=== PATIENT | female | born 1965 | race Caucasian/White ===

== ENCOUNTER 2022-01-22 15:49 | Emergency (ER) | payer OTHER ==
[~2022-01-22 15:49] MED LIST: CALCIUM + VITA1 EACH PO; CLARITIN10 MG PO; FENOFIBRATE160 MG PO; HCTZ25 MG PO; IMODIUM2 MG PO; LOPRESSOR50 MG PO; ONDANSETRON ODT4 MG PO/SL; POTASSIUM CHLO20 ME2 PO; PROTONIX 40MG T40 MG PO; SINGULAIR10 MG PO; SYNTHROID25 MCG PO; ZYRTEC10 M3 PO
[2022-01-22 17:06] LABS: BASOPHIL 0.7 % (0-2); EOSINOPHIL 1.7 % (0-5); MCH 29.5 pg (25.0-31.0); MCHC 32.6 g/dL (32.0-36.0); MCV 90.6 fL (78.0-100.0); MONOCYTE 7.9 % (0-12); MPV 10.4 fL (6.0-9.5); NEUTROPHIL 68.2 % (41-80); NRBC 0; PLT 275 K/uL (150-400); RBC 5.08 M/uL (4.20-5.40); RDW 13.2 % (11.5-14.0)
[2022-01-22 17:13] LABS: INR 0.97 (0.9-1.2); PROTHROMBIN TIME 12.6 SECONDS (11.9-13.9)
[2022-01-22 17:14] LABS: PTT 23.4 SECONDS (24.9-34.6)
[2022-01-22 17:21] LABS: BUN/CREAT RATIO (CALC) 17.2 RATIO; CREATININE 1.16 mg/dL (0.51-0.95); POTASSIUM 3.7 mmol/L (3.5-5.1)
== END 2022-01-22 18:30 | disposition home or self-care (01) ==
LOC: FER 15:49
PROVIDERS: Emergency Medicine
DX: G43.809 Other migraine, not intractable, without status migrainosus (principal); I10 Essential (primary) hypertension; Z88.2 Allergy status to sulfonamides; Z88.5 Allergy status to narcotic agent; Z88.8 Allergy status to other drugs, medicaments and biological substances
CPT/HCPCS: 36415; 70450; 70551; 80048; 85025; 85610; 85730; 93005

== ENCOUNTER → 2022-03-13 | Day surgery (SDC) | payer OTHER ==
[~2022-03-13] VITALS: Ht 167.6 cm; Wt 131.5 kg
[~2022-03-13] MED LIST changes: +AMITRIPTYLINE H10 MG PO; +CYANOCOBAL1000 MCG/2 IM; +ESTRADIOL VG; +FLONASE ALLER15.8 ML; +NORVASC2.5 MG PO; +PEPCID AC20 MG PO; +RELPAX20 MG PO; +VITAMIN B-121000 MC1 PO; +VITAMIN D21250 MCG PO
[2022-03-13 07:55] LABS: HCT 44.1 % (37.0-47.0); HGB 14.8 g/dl (12.5-16.0); MCH 29.8 pg (25.0-31.0); MCHC 33.6 g/dL (32.0-36.0); MCV 88.7 fL (78.0-100.0); MPV 10.7 fL (6.0-9.5); RBC 4.97 M/uL (4.20-5.40); RDW 13.7 % (11.5-14.0); WBC 7.6 K/uL (4.0-10.5)
== END | disposition home or self-care (01) ==
LOC: FAS 07:20
PROVIDERS: Surgery
DX: K29.70 Gastritis, unspecified, without bleeding (principal); K21.9 Gastro-esophageal reflux disease without esophagitis; I12.9 Hypertensive chronic kidney disease with stage 1 through stage 4 chronic kidney disease, or unspecified chronic kidney disease; N18.9 Chronic kidney disease, unspecified; G47.30 Sleep apnea, unspecified; E03.9 Hypothyroidism, unspecified; Z88.2 Allergy status to sulfonamides; Z88.8 Allergy status to other drugs, medicaments and biological substances; Z79.899 Other long term (current) drug therapy
CPT/HCPCS: 36415; J0690; J2250; J2704; J7120